=== PATIENT | female | born 1985 | race Caucasian/White ===

== ENCOUNTER 2019-10-22 04:09 | Observation (INO) | payer MEDICAID ==
[~2019-10-22] VITALS: Ht 165.1 cm; Wt 98.4 kg
--- NOTE | 2019-10-22 04:33 | PHYS DOC ---
Past History Past Medical History: Anxiety, Depression, STD, Other Additional Past Medical Histor: ADHD, insomnia Past Surgical History: Hysterectomy Alcohol Use: Rarely Drug Use: None Adult General Chief Complaint Chief Complaint: ALLERGIC REACTION HPI HPI 34-year-old female presents with concern of allergic reaction. The patient was exposed to shrimp around 3 AM. The patient did not ingest any. She did not have direct contact. She was just around shrimp where she works and began have shortness of breath and feeling of throat tightness. She administered 2 rounds of epinephrine herself and called EMS. EMS gave 125 of Solu-Medrol and 50 mg of Benadryl. The patient feels like her breathing is improved at this time, but she does feel itchy all over and still feels like her throat might be swollen. The patient has hospitalized for this in the past. She has not been intubated. Review of Systems Review of Systems Constitutional: Allergic reaction. Denies fever or chills [] Eyes: Denies change in visual acuity, redness, or eye pain [] HENT: Denies nasal congestion or sore throat [] Respiratory: shortness of breath [] Cardiovascular: No additional information not addressed in HPI [] GI: Denies abdominal pain, nausea, vomiting, bloody stools or diarrhea [] : Denies dysuria or hematuria [] Musculoskeletal: Denies back pain or joint pain [] Integument: Denies rash or skin lesions [] Neurologic: Denies headache, focal weakness or sensory changes [] Endocrine: Denies polyuria or polydipsia [] All other systems were reviewed and found to be within normal limits, except as documented in this note. Current Medications Current Medications Current Medications Medications (Trade) Dose Ordered Sig/Pk Start Time Stop Time Status Last Admin Dose Admin Sodium Chloride 1,000 ml @ 1,000 mls/hr 1X ONCE 10/22/19 04:30 10/22/19 05:29 UNV Physical Exam Physical Exam Constitutional: Well developed, well nourished, no acute distress, non-toxic appearance. [] HENT: Normocephalic, atraumatic, bilateral external ears normal, oropharynx moist, no significant oropharynx swelling, no oral exudates, nose normal. [] Eyes: PERRLA, EOMI, conjunctiva normal, no discharge. [] Neck: Normal range of motion, no tenderness, supple, no stridor. [] Cardiovascular:Heart rate regular rhythm, no murmur [] Lungs & Thorax: Bilateral breath sounds clear to auscultation [] Abdomen: Bowel sounds normal, soft, no tenderness, no masses, no pulsatile masses. [] Skin: Warm, dry, no erythema, no rash. [] Back: No tenderness, no CVA tenderness. [] Extremities: No tenderness, no cyanosis, no clubbing, ROM intact, no edema. [] Neurologic: Alert and oriented X 3, normal motor function, normal sensory function, no focal deficits noted. [] Psychologic: Affect normal, judgement normal, mood normal. [] Current Patient Data Vital Signs Vital Signs Date Time Temp Pulse Resp B/P (MAP) Pulse Ox O2 Delivery O2 Flow Rate FiO2 10/22/19 04:20 99.3 97 20 97 Room Air EKG EKG [] Radiology/Procedures Radiology/Procedures [] Course & Med Decision Making Course & Med Decision Making Pertinent Labs and Imaging studies reviewed. (See chart for details) The patient received appropriate treatment for her allergic reaction prior to arrival. I have not given her any additional medications. She has been stable and is feeling better. Her labs potassium of 2.7. I will replace these by IV due to her allergic reaction to avoid by mouth complications and admit her to the hospital. I spoke with Dr. Salmon and he has accepted the patient for admission. [] Dragon Disclaimer Dragon Disclaimer This electronic medical record was generated, in whole or in part, using a voice recognition dictation system. Departure Departure: Impression: Primary Impression: Allergic reaction to shellfish Additional Impression: Hypokalemia Disposition: ADMITTED INPATIENT Admitting Physician: Lisa Salmon Condition: STABLE Problem Qualifiers CANDELARIO GIVENS DO Oct 22, 2019 04:33
[2019-10-22 04:46] LABS: BASO % 1 % (0-3); EOS # 0.1 x10^3/uL (0.0-0.7); EOS % 1 % (0-3); HEMATOCRIT 37.9 % (36.0-47.0); HEMOGLOBIN 12.9 g/dL (12.0-15.5); LYMPH # 2.6 x10^3/uL (1.0-4.8); LYMPH % 31 % (24-48); MEAN CORPUSCULAR HEMOGLOBIN 31 pg (25-35); MEAN CORPUSCULAR HGB CONC 34 g/dL (31-37); MEAN CORPUSCULAR VOLUME 92 fL (79-100); MONO # 0.7 x10^3/uL (0.0-1.1); MONO % 9 % (0-9); NEUT % 59 % (31-73); PLATELET COUNT 241 x10^3/uL (140-400); RED CELL DISTRIBUTION WIDTH 14.2 % (11.5-14.5); WHITE BLOOD COUNT 8.5 x10^3/uL (4.0-11.0)
[2019-10-22] MEDS ORDERED: IV NORMAL SALINE 1,000ML 1,000 ML IV ONE (05:00)
[2019-10-22 05:01] LABS: ALBUMIN 3.8 g/dL (3.4-5.0); ALBUMIN/GLOBULIN RATIO 1.2 (1.0-1.7); CALCIUM 8.5 mg/dL (8.5-10.1); CREATININE 0.9 mg/dL (0.6-1.0); GFR 71.7; TOTAL BILIRUBIN 0.4 mg/dL (0.2-1.0); TOTAL PROTEIN 6.9 g/dL (6.4-8.2)
[2019-10-22 05:04] LABS: POTASSIUM 2.7 mmol/L (3.5-5.1)
[2019-10-22] MEDS ORDERED: POTASSIUM CL 40MEQ IN 0.9%NACL 1,000 ML IV ONE (05:30)
[2019-10-22] MEDS ORDERED: ONDANSETRON PF 4 MG/2 ML VIAL. IV PRN (05:30)
[2019-10-22 06:12] VITALS: BP 109/68
[2019-10-22] MEDS ORDERED: MELO15TA23 PO (06:14)
[2019-10-22] MEDS ORDERED: DEXT5CAP PO (06:14)
[2019-10-22] MEDS ORDERED: BUPR300T4 PO (06:14)
[2019-10-22] MEDS ORDERED: ALPR0.5T6 PO (06:14)
[2019-10-22] MEDS ORDERED: ESCI20TA2 PO (06:14)
[2019-10-22] MEDS ORDERED: TRAZ-86 PO (06:14)
[2019-10-22] MEDS ORDERED: PHEN37.5 PO (06:14)
[2019-10-22] MEDS ORDERED: MELA10TA3 PO (06:18)
[2019-10-22] MEDS: POTASSIUM BICARB 20 MEQ EFFERVESCENT TABLET. FT SCH ×2 (08:46→12:16)
[2019-10-22] MEDS ORDERED: CITALOPRAM 20 MG TABLET. PO SCH (09:00)
[2019-10-22] MEDS ORDERED: buPROPion XL 150 MG TAB.ER.24H PO SCH (09:00)
[2019-10-22 11:16] VITALS: BP 114/69
[2019-10-22 14:57] LABS: CALCIUM 8.8 mg/dL (8.5-10.1); CREATININE 0.9 mg/dL (0.6-1.0); GFR 71.7
[2019-10-22 15:09] VITALS: BP 125/81
[2019-10-22] MEDS ORDERED: ALPRAZolam 0.5 MG TABLET PO PRN (15:15)
[2019-10-22] MEDS ORDERED: MELOXICAM 15 MG TABLET. PO PRN (15:15)
--- NOTE | 2019-10-22 18:21 | SSS ---
ADMIT DATE: 10/22/2019 HISTORY OF PRESENT ILLNESS: The patient is a 34-year-old female patient who presented to the Emergency Room of [facility] with concern for allergic reaction. The patient was exposed to SHRIMP around 3:00 a.m. and the patient did not ingest any, she did not have direct contact. She was just around SHRIMP where she works and began having shortness of breath and feeling of throat tightness. She administered 2 rounds of epinephrine herself and called EMS. The EMS gave 125 mg of Solu-Medrol, 50 mg of Benadryl. The patient feels like her breathing is improved at the time she arrived. She does feel itchy all over and still feels like her throat might be swollen. The patient was hospitalized for this in the past. She has never been intubated. She has a total of 4 episodes of anaphylactic shock related to exposure to SHRIMP. She carries with her EpiPen. PAST MEDICAL HISTORY: Significant for depression, anxiety, and insomnia. PAST SURGICAL HISTORY: Significant for total abdominal hysterectomy. ALLERGIES: She is allergic to IODINE and IODINE-CONTAINING PRODUCTS, PENICILLIN, ACETAMINOPHEN, CODEINE, HYDROCODONE, OXYCODONE, TRAMADOL as well as SHRIMP. MEDICATIONS: She is currently on following medications: She is on meloxicam ____ mg twice a day, Wellbutrin 300 mg daily, escitalopram oxalate 20 mg daily, trazodone 200 mg at bedtime, dextroamphetamine 5 mg daily, phentermine 37.5 mg daily, alprazolam 0.5 mg 3 times a day as needed and melatonin 10 mg at bedtime. FAMILY HISTORY: She has one brother younger and 1 sister older; has multiple mental problems. She apparently does not know her biological father. Her mother is alive in her 50s and apparently healthy. SOCIAL HISTORY: She is , has 3 daughters and 3 sons. She smokes 3 cigarettes per day and attempting to quit smoking. She does not drink alcohol or use any recreational drugs. She is currently ____ works at the [employer]. REVIEW OF SYSTEMS: As per history of present illness. On arrival to the Emergency Room, she looked well and was clearly in no apparent respiratory distress. No pallor, jaundice, cyanosis from thyromegaly. No jugular venous distention. No lymphedema. Her heart rate was 68, blood pressure was 109/68, temperature was 98.2, respiratory rate was 18 and oxygen saturation was 96%. Examination of the HEENT shows normocephalic, atraumatic and neck was supple. Heart showed normal first and second heart sounds with no gallop, rub or murmur. Chest was clear to auscultation. No crepitation or rhonchi. Abdomen, distended, soft, nontender. Neurologically, she was awake, alert, oriented x 3 with normal motor and sensory function. Her affect, judgment and mood are all normal. While at the Emergency Room, her white cell count was 8500, hemoglobin 12.9, hematocrit 37.9, MCV 92, and platelet count 241,000. Her chemistry showed a serum sodium 137, potassium 2.7, chloride 99, bicarbonate 28, anion gap of 10, BUN 15, creatinine 0.9. Estimated GFR was 72 mL per minute. Her glucose 158, calcium was 8.5. Total bilirubin, AST, ALT, alkaline phosphatase were normal. Total protein was 6.9, albumin 3.8. PHYSICAL EXAMINATION: GENERAL: When I saw her this afternoon, she was resting, almost flat in bed, comfortable, in no apparent distress. Denied any shortness of breath, cough, chest tightness or wheezing. There is no skin rash or hives. VITAL SIGNS: Her heart rate was 81, blood pressure was 114/69, temperature was 98.5, respiratory rate 20, and oxygen saturation was 96% on room air. HEAD, EYES, EARS, NOSE AND THROAT: Showed normocephalic, atraumatic. NECK: Supple. HEART: Showed normal first and second heart sounds with no gallop, rub or murmur. CHEST: Clear to auscultation. No crepitation or rhonchi. ABDOMEN: Distended, soft, nontender. NEUROLOGICALLY: She was awake, alert, responding appropriately. All cranial nerves intact. EXTREMITIES: She moves extremities without difficulty. She ambulates without assistance or assistive devices. Her lab work this afternoon showed her serum sodium was 141, potassium 5, chloride 107, bicarbonate 26, anion gap of 8, BUN 12, creatinine 0.9, estimated GFR was 72 mL per minute. Her glucose was 138 and calcium was 8.8. She was discharged home to continue on following medications: Alprazolam 0.5 mg 3 times a day, Wellbutrin 300 mg once a day, dextroamphetamine/amphetamine for Adderall 5 mg once a day, escitalopram oxalate 20 mg daily, melatonin 10 mg at bedtime, meloxicam ____ mg twice a day as needed, phentermine 37.5 mg daily and trazodone 200 mg at bedtime. FINAL DISCHARGE DIAGNOSES: Anaphylactic shock due to SHRIMPS. Other medical problems include anxiety, depression and attention deficit hyperactivity disorder, insomnia. The patient was discharged home with a script for EpiPen. She may return to work on 10/28/2019. CARIE MUHAMMAD MD DR: LOLA/adin JOB#: [id number] / [id number]
[2019-10-22] MEDS ORDERED: traZODone 100 MG TABLET. PO SCH (21:00)
[2019-10-22] MEDS ORDERED: MELATONIN 3 MG TABLET PO SCH (21:00)
[2019-10-23] MEDS ORDERED: AMPHETAMINE PO SCH (09:00)
[2019-10-23] MEDS ORDERED: NON FORMULARY ITEM (Phentermine Hcl 37.5 MG) PO SCH (09:00)
[2019-10-23] MEDS ORDERED: DEXTROAMPHETAMINE PO SCH (09:00)
== END 2019-10-22 16:10 | disposition home or self-care (01) ==
LOC: ER 04:09 → 1 SOUTH 05:20
PROVIDERS: ADMIT Internal Medicine; ATTEND Internal Medicine
DX: T78.1XXA Other adverse food reactions, not elsewhere classified, initial encounter (principal); E87.6 Hypokalemia; F41.9 Anxiety disorder, unspecified; F32.9 Major depressive disorder, single episode, unspecified; F90.9 Attention-deficit hyperactivity disorder, unspecified type; F17.210 Nicotine dependence, cigarettes, uncomplicated; G47.00 Insomnia, unspecified; Z90.710 Acquired absence of both cervix and uterus
CPT/HCPCS: 36415; 80048; 80053; 85025; 96365; 96366; 99284; G0378; 96361; G0379; J7030

== ENCOUNTER 2019-12-10 06:41 | Emergency (ER) | payer OTHER, MEDICAID ==
[~2019-12-10] VITALS: Ht 165.1 cm; Wt 92.3 kg
[~2019-12-10 06:41] MED LIST: ALPR0.5T6 PO; BUPR300T92 PO; DEXT5CAP PO; ESCI20TA2 PO; MELA10TA3 PO; MELO15TA23 PO; PHEN37.5 PO; TRAZ-125 PO
--- NOTE | 2019-12-10 06:56 | PHYS DOC ---
Past History Past Medical History: Anxiety, Depression, STD, Other Additional Past Medical Histor: ADHD, insomnia Past Surgical History: Hysterectomy Alcohol Use: Rarely Drug Use: None Adult General Chief Complaint Chief Complaint: ALLERGIC REACTION HPI HPI Patient is a 44-year-old female who was brought here from work due to her allergic reaction. Patient had a long-standing history of allergic reaction to shrimp and selfish. Today at work her coworker was eating scrambled, she will walking by, later she started having an allergic reaction, felt like she had trouble swallowing, felt her throat was swollen. Patient had epipen with her so she gave herself a shot of epinephrine, did not feel better so she gave her self another shot of epinephrine then called EMS to take her here. EMS gave her 50 mg benadryl iv and 125 mg solumedrol iv on route. Patient denies any neck pain or any trouble breathing. She denies any chest pain, no abdominal pain, no nausea vomiting. She denies any itchy or rash. Patient denied using any new detergents or perfume or taking any new medication. All other ROS is negative unless otherwise noted in HPI Review of Systems Review of Systems See above Current Medications Current Medications Current Medications Medications (Trade) Dose Ordered Sig/Pk Start Time Stop Time Status Last Admin Dose Admin Epinephrine HCl (EPINEPHrine SYRINGE) 0.3 mg 1X ONCE 12/10/19 07:00 12/10/19 07:01 UNV Famotidine (Pepcid Vial) 20 mg 1X ONCE 12/10/19 07:00 12/10/19 07:01 Methylprednisolone Sodium Succinate (SOLU-Medrol 125MG VIAL) 125 mg 1X ONCE 12/10/19 07:00 12/10/19 07:01 Sodium Chloride 1,000 ml @ 1,000 mls/hr 1X ONCE 12/10/19 07:00 12/10/19 07:59 Allergies Allergies Allergies Coded Allergies Type Severity Reaction Last Updated Verified Iodine and Iodide Containing Produc Allergy Severe Anaphylaxis 10/22/19 Yes Penicillins Allergy Severe Swelling 10/22/19 Yes acetaminophen Allergy Severe Swelling 10/22/19 Yes codeine Allergy Severe Swelling 10/22/19 Yes tramadol Allergy Severe Swelling 10/22/19 Yes hydrocodone Allergy Mild Hives 10/22/19 Yes oxycodone Allergy Mild Hives 10/22/19 Yes Physical Exam Physical Exam See above Constitutional: Well developed, well nourished, no acute distress, non-toxic appearance. [] HENT: Normocephalic, atraumatic, bilateral external ears normal, oropharynx moist, no oral exudates, nose normal. The tip of the tongue is mildly swollen. No drooling. Eyes: PERRLA, EOMI, conjunctiva normal, no discharge. [] Neck: Normal range of motion, no tenderness, supple, no stridor. [] Cardiovascular:Heart rate regular rhythm, no murmur [] Lungs & Thorax: Bilateral breath sounds clear to auscultation [] Abdomen: Bowel sounds normal, soft, no tenderness, no masses, no pulsatile masses. [] Skin: Warm, dry, no erythema, NO RASH. Back: No tenderness, no CVA tenderness. [] Extremities: No tenderness, no cyanosis, no clubbing, ROM intact, no edema. [] Neurologic: Alert and oriented X 3, normal motor function, normal sensory function, no focal deficits noted. [] Psychologic: Affect normal, judgement normal, mood normal. [] EKG EKG [] Radiology/Procedures Radiology/Procedures [] Course & Med Decision Making Course & Med Decision Making Pertinent Labs and Imaging studies reviewed. (See chart for details) She was given medication in the ER, she felt much better. AFTER 4 HOURS OF for observation in the ER patient was ready for discharge home, patient was discharged home with a prescription for the EPIPEN. Dragon Disclaimer Dragon Disclaimer This electronic medical record was generated, in whole or in part, using a voice recognition dictation system. Departure Departure: Impression: Primary Impression: Allergic reaction Additional Impression: Angio-edema Disposition: HOME, SELF-CARE Condition: STABLE Referrals: PCP,UNKNOWN (PCP) FOLLOW UP WITH YOUR DOCTOR ON FRIDAY. Patient Instructions: Allergies, Generic, Angioedema Additional Instructions: Thank you for visiting our Emergency Department. We appreciate you trusting us with your care. If any additional problems come up don't hesitate to return to visit us. Please follow up with your primary care provider so they can plan a dditional care if needed and know about the problem that you had. If symptoms worsen come back to the Emergency Department. Any concerning symptoms that start such as chest pain, shortness of air, weakness or numbness on one side of the body, running high fevers or any other concerning symptoms return to the ER. Scripts Famotidine (PEPCID) 20 Mg Tablet 20 MG PO DAILY for ALLERGY, #5 TAB Prov: RAFI RAMOS DO 12/10/19 Prednisone (PREDNISONE) 20 Mg Tablet 1 TAB PO DAILY for ALLERGIC REACTION, #5 TAB Prov: RAFI RAMOS DO 12/10/19 Epinephrine (EPIPEN 2-JAKY) 0.3 Mg/0.3 Ml Auto.injct 1 SYR IM ONCE for ALLERGIC REACTION for 1 Day, #1 PACKET 0 Refills Prov: RAFI RAMOS DO 12/10/19 Problem Qualifiers RAFI RAMOS DO Dec 10, 2019 06:56
[2019-12-10] MEDS ORDERED: EPINEPHrine SYRINGE 1 MG/10 ML SYRINGE ONE (06:59)
[2019-12-10] MEDS ORDERED: IV NORMAL SALINE 1,000ML 1,000 ML IV ONE (07:00)
[2019-12-10] MEDS ORDERED: methylPREDNISolone SOD SUCC PF 125 MG/2 ML VIAL. IV ONE (07:00)
[2019-12-10] MEDS ORDERED: FAMOTIDINE 20 MG/2 ML VIAL IVP ONE (07:00)
[2019-12-10] MEDS ORDERED: EPIN0.3A4 IM (10:19)
[2019-12-10 10:25] VITALS: BP 131/80
[2019-12-10] MEDS ORDERED: PRED20TA PO (15:16)
[2019-12-10] MEDS ORDERED: FAMO-63 PO (15:16)
== END 2019-12-10 10:30 | disposition home or self-care (01) ==
LOC: ER 06:41
DX: T78.40XA Allergy, unspecified, initial encounter (principal); T78.3XXA Angioneurotic edema, initial encounter; Z90.710 Acquired absence of both cervix and uterus; Z88.0 Allergy status to penicillin; Z88.5 Allergy status to narcotic agent; Z88.8 Allergy status to other drugs, medicaments and biological substances; Z91.013 Allergy to seafood
CPT/HCPCS: 96372; 96374; 96375; 99284; J0171; J2930; J3490; J7030

== ENCOUNTER 2019-12-27 19:23 | Emergency (ER) | payer MEDICAID, OTHER ==
[~2019-12-27] VITALS: Ht 165.1 cm; Wt 94.3 kg
[~2019-12-27 19:23] MED LIST changes: +EPIN0.3A4 IM; +FAMO-63 PO; +PRED20TA PO
--- NOTE | 2019-12-27 19:39 | PHYS DOC ---
Past History Past Medical History: Anxiety, Depression, STD, Other Additional Past Medical Histor: ADHD, insomnia Past Surgical History: Hysterectomy Alcohol Use: None Drug Use: None Adult General Chief Complaint Chief Complaint: ALLERGIC REACTION HPI HPI 34-year-old female presents with concern for allergic reaction. The patient work about 2 and she walked in the head trauma at work. The patient is very allergic to shrimp. Hemoglobin is having difficulty breathing so she injected herself with her epinephrine pen. She did a single dose and came to the emergency room. She feels like her throat might be a little bit swollen. She has an intermittent cough since the exposure. She does not have a rash. I have seen this patient once previously in the emergency room with a very similar complaint. She denies fever or chills. Review of Systems Review of Systems Constitutional: Denies fever or chills [] Eyes: Denies change in visual acuity, redness, or eye pain [] HENT: Denies nasal congestion or sore throat. Feels like her airway is slightly swollen. [] Respiratory: Cough with mild shortness of breath [] Cardiovascular: No additional information not addressed in HPI [] GI: Denies abdominal pain, nausea, vomiting, bloody stools or diarrhea [] : Denies dysuria or hematuria [] Musculoskeletal: Denies back pain or joint pain [] Integument: Denies rash or skin lesions [] Neurologic: Denies headache, focal weakness or sensory changes [] Endocrine: Denies polyuria or polydipsia [] All other systems were reviewed and found to be within normal limits, except as documented in this note. Allergies Allergies Allergies Coded Allergies Type Severity Reaction Last Updated Verified Iodine and Iodide Containing Produc Allergy Severe Anaphylaxis 12/10/19 Yes Penicillins Allergy Severe Swelling 12/10/19 Yes acetaminophen Allergy Severe Swelling 12/10/19 Yes codeine Allergy Severe Swelling 12/10/19 Yes tramadol Allergy Severe Swelling 12/10/19 Yes hydrocodone Allergy Mild Hives 12/10/19 Yes oxycodone Allergy Mild Hives 12/10/19 Yes shellfish derived Allergy Unknown 12/10/19 Yes shrimp Allergy Unknown 12/10/19 Yes Physical Exam Physical Exam Constitutional: Well developed, well nourished, no acute distress, non-toxic appearance. [] HENT: Normocephalic, atraumatic, bilateral external ears normal, oropharynx moist without obvious swelling, no oral exudates, nose normal. [] Eyes: PERRLA, EOMI, conjunctiva normal, no discharge. [] Neck: Normal range of motion, no tenderness, supple, no stridor. [] Cardiovascular: Heart rate 106, regular rhythm, no murmur [] Lungs & Thorax: Bilateral breath sounds clear to auscultation [] Abdomen: Bowel sounds normal, soft, no tenderness, no masses, no pulsatile masses. [] Skin: Warm, dry, no erythema, no rash. [] Back: No tenderness, no CVA tenderness. [] Extremities: No tenderness, no cyanosis, no clubbing, ROM intact, no edema. [] Neurologic: Alert and oriented X 3, normal motor function, normal sensory function, no focal deficits noted. [] Psychologic: Affect normal, judgement normal, mood anxious [] EKG EKG [] Radiology/Procedures Radiology/Procedures [] Course & Med Decision Making Course & Med Decision Making Pertinent Labs and Imaging studies reviewed. (See chart for details) The patient was given 50 mg of Benadryl, 1 L normal saline, 20 mg of Pepcid, and 125 Solu-Medrol. She had no further difficulty breathing in the emergency room. She did not develop a rash. She is feeling bit better at this time. She is stable for discharge [] Dragon Disclaimer Dragon Disclaimer This electronic medical record was generated, in whole or in part, using a voice recognition dictation system. Departure Departure: Impression: Primary Impression: Shrimp allergy Disposition: 01 HOME, SELF-CARE Condition: IMPROVED Referrals: NON,STAFF (PCP) Patient Instructions: Food Allergy, [id number] CANDELARIO GIVENS DO Dec 27, 2019 19:39
[2019-12-27] MEDS ORDERED: FAMOTIDINE 20 MG/2 ML VIAL IVP ONE (19:45)
[2019-12-27] MEDS ORDERED: IV NORMAL SALINE 1,000ML 1,000 ML IV ONE (19:45)
[2019-12-27] MEDS ORDERED: diphenhydrAMINE 50 MG/ML VIAL IVP ONE (19:45)
[2019-12-27] MEDS ORDERED: methylPREDNISolone SOD SUCC PF 125 MG/2 ML VIAL. IV ONE (19:45)
[2019-12-27 19:57] LABS: BASO % 0 % (0-3); EOS # 0.1 x10^3/uL (0.0-0.7); EOS % 1 % (0-3); HEMATOCRIT 42.2 % (36.0-47.0); HEMOGLOBIN 14.2 g/dL (12.0-15.5); LYMPH % 42 % (24-48); MEAN CORPUSCULAR HEMOGLOBIN 32 pg (25-35); MEAN CORPUSCULAR HGB CONC 34 g/dL (31-37); MEAN CORPUSCULAR VOLUME 94 fL (79-100); MONO # 0.7 x10^3/uL (0.0-1.1); MONO % 9 % (0-9); NEUT # 3.5 x10^3uL (1.8-7.7); NEUT % 47 % (31-73); PLATELET COUNT 327 x10^3/uL (140-400); RED BLOOD COUNT 4.47 x10^6/uL (3.50-5.40); RED CELL DISTRIBUTION WIDTH 13.8 % (11.5-14.5); WHITE BLOOD COUNT 7.3 x10^3/uL (4.0-11.0)
[2019-12-27 20:01] LABS: CALCIUM 8.8 mg/dL (8.5-10.1); CREATININE 0.8 mg/dL (0.6-1.0); GFR 82.1; POTASSIUM 3.4 mmol/L (3.5-5.1)
[2019-12-27 20:07] LABS: ALBUMIN 3.9 g/dL (3.4-5.0); ALBUMIN/GLOBULIN RATIO 1.2 (1.0-1.7); TOTAL BILIRUBIN 0.2 mg/dL (0.2-1.0); TOTAL PROTEIN 7.1 g/dL (6.4-8.2)
[2019-12-27 20:26] VITALS: BP 137/68
== END 2019-12-27 21:10 | disposition home or self-care (01) ==
LOC: ER 19:23
DX: T78.1XXA Other adverse food reactions, not elsewhere classified, initial encounter (principal); R06.02 Shortness of breath; Z91.041 Radiographic dye allergy status; Z88.0 Allergy status to penicillin; Z88.5 Allergy status to narcotic agent; Z88.6 Allergy status to analgesic agent; Z91.018 Allergy to other foods; Z91.013 Allergy to seafood; X58.XXXA Exposure to other specified factors, initial encounter
CPT/HCPCS: 36415; 80053; 85025; 96374; 96375; 99284; J1200; J2930; J3490; J7030

== ENCOUNTER 2020-03-10 01:31 | Emergency (ER) | payer MEDICAID, OTHER ==
[~2020-03-10] VITALS: Ht 165.1 cm; Wt 94.1 kg
[2020-03-10 01:40] VITALS: BP 123/52
--- NOTE | 2020-03-10 01:53 | PHYS DOC ---
Past History Past Medical History: Anxiety, Depression, STD, Other Additional Past Medical Histor: ADHD, insomnia Past Medical History Hx. 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 Pt. has severe allergy to shellfish and shrimp.. Patient has had previous hospital admissions on exposure to shrimp products. Last admission was 10/22, After a similar exposure. Patient reports she did use her EpiPen and took 50 mg of Benadryl.. Paramedics in route gave her 125 mg of Solu-Medrol. Patient reported marked improvement of symptoms upon arrival to the emergency department. Patient states she has never been intubated for her severe attacks. Has had at least 4 episodes of anaphylactic shock related to exposure to strep. Patient has a past history of depression, ADHD, anxiety, insomnia, and multiple med allergies. Patient denies any recent travel outside the [place] area. Patient has been exposed to several inmates and guards at [facility] had tested positive for COVID-19. Patient herself denies any COVID symptoms. Review of Systems: Review of Systems: Constitutional: Denies fever or chills Eyes: Denies change in visual acuity HENT: Denies nasal congestion or sore throat Respiratory: Hx of cough or shortness of breath after exposure to shrimp. Cardiovascular: Denies chest pain or edema GI: Denies abdominal pain, nausea, vomiting, bloody stools or diarrhea : Denies dysuria Musculoskeletal: Denies back pain or joint pain Integument: Denies rash Neurologic: Denies headache, focal weakness or sensory changes Endocrine: Denies polyuria or polydipsia Lymphatic: Denies swollen glands Psychiatric: Denies depression or anxiety Heart Score: Risk Factors: Risk Factors: DM, Current or recent (<one month) smoker, HTN, HLP, family history of CAD, obesity. Risk Scores: Score 0 - 3: 2.5% MACE over next 6 weeks - Discharge Home Score 4 - 6: 20.3% MACE over next 6 weeks - Admit for Clinical Observation Score 7 - 10: 72.7% MACE over next 6 weeks - Early Invasive Strategies Family History: Family History: Patient has family history of 1 younger brother and 1 older sister. Both have a history of mental health problems. Patient does not know her biological father. Mother is alive and well in the 50s and healthy. Current Medications: Current Meds: See nursing for home medications Allergies: Allergies: Allergies Coded Allergies Type Severity Reaction Last Updated Verified Iodine and Iodide Containing Produc Allergy Severe Anaphylaxis 12/10/19 Yes Penicillins Allergy Severe Swelling 12/10/19 Yes acetaminophen Allergy Severe Swelling 12/10/19 Yes codeine Allergy Severe Swelling 12/10/19 Yes tramadol Allergy Severe Swelling 12/10/19 Yes hydrocodone Allergy Mild Hives 12/10/19 Yes oxycodone Allergy Mild Hives 12/10/19 Yes shellfish derived Allergy Unknown 12/10/19 Yes shrimp Allergy Unknown 12/10/19 Yes Physical Exam: PE: Constitutional: Currently mild distress, non-toxic appearance. [] HENT: Normocephalic, atraumatic, bilateral external ears normal, oropharynx moist, no oral exudates, nose swollen turbinates and clear rhinorrhea. Eyes: PERRLA, EOMI, conjunctiva normal, no discharge. [] Neck: Normal range of motion, no tenderness, supple, no stridor. [] Cardiovascular:Heart rate regular rhythm, no murmur [] Lungs & Thorax: Bilateral breath sounds equal at apex with few scattered wheezes on auscultation [] Abdomen: Bowel sounds normal, soft, no tenderness, no masses, no pulsatile masses. Old surgery scars. Skin: Warm, dry, no erythema, no rash. Tattoos Back: No tenderness, no CVA tenderness. [] Extremities: No tenderness, no cyanosis, no clubbing, ROM intact, no edema. [] Neurologic: Alert and oriented X 3, normal motor function, normal sensory function, no focal deficits noted. [] Psychologic: Affect anxious, judgement normal, mood normal. [] EKG: EKG: [] Radiology/Procedures: Radiology/Procedures: [] Course & Med Decision Making: Course & Med Decision Making Pertinent Labs and Imaging studies reviewed. (See chart for details) Patient declined labs and further meds. Patient can continue to carry EpiPen. Patient to take prednisone 50 mg a day for 5 days. Patient take Pepcid 20 mg a day for the next 5 days. Patient to use MDI 2 puffs 4 times a day. Patient advised may return to work in 24 hours of asymptomatic. Impression: 1. Allergic Reaction 2. Hx. Exposure to Shrimp [] Dragon Disclaimer: Thee Disclaimer: This electronic medical record was generated, in whole or in part, using a voice recognition dictation system. Departure Departure: Disposition: HOME/RESIDENCE PRIOR TO ADM Condition: STABLE Referrals: PCP,UNKNOWN (PCP) Scripts Prednisone (PREDNISONE) 50 Mg Tablet 50 MG PO DAILY for allergic reaction for 5 Days, #5 TAB Prov: AMERICA NAVARRO MD 03/10/20 Albuterol Sulfate (VENTOLIN HFA INHALER) 18 Gm Hfa.aer.ad 2 PUFF IH PRN Q4HRS PRN for FOR ASTHMA for 30 Days, INHALER 0 Refills Prov: AMERICA NAVARRO MD 03/10/20 Famotidine (PEPCID) 20 Mg Tablet 20 MG PO DAILY for allergic reaction for 30 Days, #30 TAB Prov: AMERICA NAVARRO MD 03/10/20 Epinephrine (EPIPEN 2-JAKY) 0.3 Mg/0.3 Ml Auto.injct 0.3 MG IJ 1X for severe allergic reaction, #2 SYR Prov: AMERICA NAVARRO MD 03/10/20 Dragon Disclaimer This chart was dictated in whole or in part using Voice Recognition software in a busy, high-work load, and often noisy Emergency Department environment. It may contain unintended and wholly unrecognized errors or omissions. AMERICA NAVARRO MD March 10, 2020 01:53
[2020-03-10] MEDS ORDERED: EPIN0.3A4 IJ (02:01)
[2020-03-10] MEDS ORDERED: FAMO-63 PO (02:01)
[2020-03-10] MEDS ORDERED: PRED50TA PO (02:01)
[2020-03-10] MEDS ORDERED: ALBU2.5V8 IH (02:01)
== END 2020-03-10 03:32 | disposition home or self-care (01) ==
LOC: ER 01:31
DX: F41.9 Anxiety disorder, unspecified (principal); T78.1XXA Other adverse food reactions, not elsewhere classified, initial encounter; F32.9 Major depressive disorder, single episode, unspecified; G47.00 Insomnia, unspecified; Z90.710 Acquired absence of both cervix and uterus; Z98.51 Tubal ligation status; Z88.0 Allergy status to penicillin; Z88.2 Allergy status to sulfonamides; Z88.1 Allergy status to other antibiotic agents; Z88.5 Allergy status to narcotic agent; Z88.6 Allergy status to analgesic agent; Z91.013 Allergy to seafood; X58.XXXA Exposure to other specified factors, initial encounter
CPT/HCPCS: 99284